=== PATIENT | female | born 1955 | race Caucasian/White ===

== ENCOUNTER 2025-01-24 17:55 | Inpatient (IN) | payer MEDICARE, SELFPAY ==
[2025-01-24] VITALS (8 sets, daily range): BP systolic 123–157; BP diastolic 60–84; PULSE 94–110; RESP 12–33; TEMP 36.9–37.7; O2SAT 89–100; BMI 28.7; BMI 30.2
--- NOTE | 2025-01-24 18:10 | RAD_ITS ---
PROCEDURE: RAD/Chest 1 View (Portable)
--- NOTE | 2025-01-24 18:16 | EX.ED.DYSGE1 ---
HPI History of Present Illness Chief Complaint: Weakness Detail of Chief Complaint: Acute altered mental status Informant: EMS Onset/Context/Timing Onset: Hours Context: Sudden Onset Timing: Continuous Quality: Patient decreased awareness and disorientation Location: Presents from [facility]. She does not live in the area. Current Severity: Moderate Maximum Severity: Moderate Worsened by: Unknown Relieved by: Nothing Associated Symptoms Associated Symptoms: Runny nose Narrative Narrative: EMS went out to check on her earlier today. She did not feel well. She felt it was due to wound on her leg. And specifically that the wound was infected. Squad states she drastically declined. She is disoriented to time and place. She has trouble keeping her eyes open to verbal stimuli. She will open her eyes to tactile. The only thing that she endorses is runny nose. She denied head pain, she denied black stools, she denied urinary symptoms as well. She denies shortness of breath even though she is breathing 26-30 times a minute. She is an unreliable informant. Patient had a transient moment where she knew her name, that she was in [place] and was here for [employer]. When she was reassessed by me 5 minutes later she is disoriented again. Prior similar symptoms: No (Unknown) Recent Illness/Hospitalization: No (She told the nurse she had open heart surgery August of this year.) [facility] Medical History (Updated 01/24/25 @ 21:[address] Jackson Garcia MD) Chronic anemia CKD (chronic kidney disease), stage III CAD (coronary artery disease) HLD (hyperlipidemia) Hypertension Diabetes Heart attack Medical History unable to obtain unable to obtain Home Medications ?Medication ?Instructions ?Recorded ?Last Taken ?Type albuterol sulfate 2.5 mg/3 mL 1 continuous nebulization Q6H PRN 01/24/25 Unknown History (0.083 %) solution for nebulization PRN dyspnea albuterol sulfate 90 mcg/actuation 1 - 2 puff inhalation Q4H PRN PRN 01/24/25 Unknown History aerosol inhaler dyspnea buspirone 5 mg tablet 5 mg PO BID 01/24/25 Unknown History clopidogrel 75 mg tablet 75 mg PO DAILY 01/24/25 Unknown History doxycycline monohydrate 100 mg 100 mg PO BID 01/24/25 Unknown History capsule insulin aspar prot-insulin aspart 45 unit subcut BID 01/24/25 Unknown History 100 unit/mL (70-30) subcutaneous pen (Novolog Mix 70-30FlexPen U-100) losartan 50 mg tablet 50 mg PO DAILY 01/24/25 Unknown History metoprolol succinate 25 mg 50 mg PO DAILY 01/24/25 Unknown History tablet,extended release 24 hr omeprazole 40 mg capsule,delayed 40 mg PO DAILY 01/24/25 Unknown History release potassium chloride 20 mEq 20 meq PO DAILY 01/24/25 Unknown History tablet,extended release(part/cryst) spironolactone 25 mg tablet 25 mg PO DAILY 01/24/25 Unknown History Allergy/AdvReac Type Severity Reaction Status Date / Time azithromycin AdvReac headache Verified 01/24/25 18:40 Surgical History (Updated 01/24/25 @ 21:[address] Linda Melendez MD) Hx of appendectomy S/P CABG (coronary artery bypass graft) Surgical History unable to obtain unable to obtain (Coronary bypass surgery and clipping of atrial appendage) Social History Smoking Status: Former smoker Homelessness:: Unspecified (Unable to obtain other than what is documented in the HPI neuro) ROS ROS ED Review of Systems ROS Unobtainable: due to mental status EXAM Physical Exam Const Vital Signs: 01/24/25 17:58 01/24/25 18:43 01/24/25 18:47 Temperature 98.5 F Temperature Source Oral Pulse Rate 110 H 99 Respiratory Rate 26 H 33 H Respiratory Pattern Tachypnea Blood Pressure 123/84 H 140/64 H Blood Pressure Mean 97 89 Pulse Ox 100 89 Oxygen Delivery Method Nasal Cannula Room Air Oxygen Flow Rate (L/min) 4 01/24/25 18:47 01/24/25 19:01 01/24/25 20:00 Temperature 98.7 F 98.4 F Temperature Source Oral Oral Pulse Rate 99 99 94 Respiratory Rate 32 H 27 H 13 Respiratory Pattern Blood Pressure 140/64 H 147/74 H 148/60 H Blood Pressure Mean 89 98 89 Pulse Ox 99 99 100 Oxygen Delivery Method Nasal Cannula Room Air Room Air Oxygen Flow Rate (L/min) 2 01/24/25 21:00 Temperature 98.4 F Temperature Source Oral Pulse Rate 99 Respiratory Rate 19 H Respiratory Pattern Blood Pressure 138/77 H Blood Pressure Mean 97 Pulse Ox 100 Oxygen Delivery Method Room Air Oxygen Flow Rate (L/min) Positive well nourished and well developed Constitutional Narrative: Patient appears pale. She looks ill. She is not oriented. General Appearance ED: well developed and pallor HEENT Reports moist mucous membranes HEENT Narrative: Head is atraumatic and normocephalic. Ears are normal. Nares patent. Posterior pharynx is normal. Eyes PERRL and EOMs intact bilaterally General Eye ED: Negative for pale conjunctiva or scleral icterus Neck no lymphadenopathy, supple and no JVD Chest Wall Chest Narrative: Medial sternal incision noted and healed. Resp normal respiratory effort Resp Narrative: Shallow rapid breaths. Auscultation: rales bilateral base Cardio regular rate, regular rhythm, S1 normal heart sound, S2 normal heart sound and no murmurs GI normal to inspection, nondistended, normoactive bowel sounds, non-tender, non-distended and no masses; Negative for hepatosplenomegaly Extremity Extremity Narrative: Patient has edema of both legs. She has a wound that is healing without evidence infection medial mid right leg there is no palpable PT or DP pulses. There is a palpable radial pulse bilaterally. She does have stigmata of peripheral arterial disease with thin skin, thickened toenails, lack of hair on her toes. Neuro No oriented x3 and CN's II-XII intact bilaterally Neuro Narrative: Patient attempted to answer questions but is unable. Her speech is not slurred. Sensorium / Orientation: Negative for alert Psych Psych Narrative: Unable to determine Skin General Skin Exam: pallor MDM MDM MDM Narrative Medical decision making narrative: Differential diagnosis would include infectious versus metabolic versus toxin. Since she is tachypneic and has rales at the base with history of heart disease will obtain chest x-ray to assess for CHF, pneumonia, initially obtain BMP CBC lactate was ordered. [place] was ordered to obtain urine as well as measure I's and O's after reviewing the chest x-ray troponin and BNP was ordered since there is evidence of cephalization and cardiomegaly. History & Record Review Additional record(s) reviewed:: No prior records Lab Data Attestation: I reviewed the patient's lab results. Lab results narrative: White count is elevated 22.5 thousand with an H&H of 10.4 and 33.5. There is a shift with 86% segs. Coags are normal. Urinalysis is remarkable sipper gravity of 1.025, protein, glucose, ketones and occult blood. Since patient has history of diabetes BGT was obtained and it is greater than 200. Microscopic urine reveals 0-5 RBCs and WBCs and squamous epithelial cells. There is 1+ bacteria. BNP is elevated at 10,887. Troponin is elevated at 23. Lactate is elevated 3.0. Labs: Laboratory Results - last 24 hr 01/24/25 01/24/25 01/24/25 18:20 18:25 18:25 WBC 22.5 H RBC 4.02 L Hgb 10.4 L Hct 33.5 L MCV 83.3 MCH 25.9 L MCHC 31.0 L RDW Std Deviation 45.1 H RDW Coeff of Maxwell 14.9 H Plt Count 205 MPV 10.4 Immature Gran % (Auto) 1.500 H Neut % (Auto) 85.5 H Lymph % (Auto) 6.7 L [place] % (Auto) 5.9 Eos % (Auto) 0.0 Baso % (Auto) 0.4 Absolute Neuts (auto) 19.2 H Absolute Lymphs (auto) 1.50 Nucleated RBC % 0 PT 14.7 INR 1.1 APTT 27.7 Sodium Cancelled 138 Potassium Cancelled 4.5 Chloride Cancelled 102 Carbon Dioxide Cancelled 23.4 Anion Gap Cancelled 12 BUN Cancelled 24 H Creatinine Cancelled 1.14 Estim Creat Clear Calc Cancelled 46.82 L Est GFR (MDRD) Non-Af Cancelled 51 L BUN/Creatinine Ratio Cancelled 21.0 H Glucose Cancelled 262 H Lactic Acid 3.0 H* Calcium Cancelled 9.2 Total Bilirubin Cancelled 0.65 AST Cancelled 21 ALT Cancelled 16 Alkaline Phosphatase Cancelled 63 Troponin T High Sens 23 H Troponin T Hi Sens 2 Hr NT pro BNP II Cancelled 15835 H Total Protein Cancelled 7.4 Albumin Cancelled 4.3 Globulin Cancelled 3.1 Albumin/Globulin Ratio Cancelled 1.4 Urine Color Yellow Urine Clarity Clear Urine pH 5.0 Ur Specific [place] 1.025 Urine Protein 100 H Urine Glucose (UA) 100 H Urine Ketones 5 H Urine Occult Blood 10 H Urine Nitrite Negative Urine Bilirubin Negative Urine Urobilinogen 1 H Ur Leukocyte Esterase Negative Urine RBC 0-5 SEEN Urine WBC 0-5 SEEN Ur Squamous Epith Cells 0-5 SEEN Urine Bacteria 1+ Hyaline Casts 0-5 SEEN Urine Mucus 0 SEEN POC Glucose 01/24/25 01/24/25 18:51 20:50 WBC RBC Hgb Hct MCV MCH MCHC RDW Std Deviation RDW Coeff of Maxwell Plt Count MPV Immature Gran % (Auto) Neut % (Auto) Lymph % (Auto) [place] % (Auto) Eos % (Auto) Baso % (Auto) Absolute Neuts (auto) Absolute Lymphs (auto) Nucleated RBC % PT INR APTT Sodium Potassium Chloride Carbon Dioxide Anion Gap BUN Creatinine Estim Creat Clear Calc Est GFR (MDRD) Non-Af BUN/Creatinine Ratio Glucose Lactic Acid Calcium Total Bilirubin AST ALT Alkaline Phosphatase Troponin T High Sens Troponin T Hi Sens 2 Hr 34 H NT pro BNP II Total Protein Albumin Globulin Albumin/Globulin Ratio Urine Color Urine Clarity Urine pH Ur Specific [place] Urine Protein Urine Glucose (UA) Urine Ketones Urine Occult Blood Urine Nitrite Urine Bilirubin Urine Urobilinogen Ur Leukocyte Esterase Urine RBC Urine WBC Ur Squamous Epith Cells Urine Bacteria Hyaline Casts Urine Mucus POC Glucose 219 H ABG Data ABG results: ABG 01/24/25 19:12 Specimen Type ART Sample Site R Radial pH 7.41 Bicarbonate Actual 24.3 Total CO2 26 Base Excess 0 O2 Saturation 95 O2 % 2.0 ABG pCO2 38.4 ABG pO2 75 Bony Test Negative O2 Delivery Device Cannula Vent Mode Not entered Radiography Chest X-Ray - ED: 1 View (Independently interpreted by me at 1816 reveals cardiomegaly. She has evidence of cephalization consistent with heart failure. There is no effusion. Sternotomy wires noted. Clip for atrial appendage noted.) EKG Initial EKG: Attestation: I personally reviewed and interpreted this EKG as follows: Interpretation: Sinus Rhythm (Rate is 99. [place] to the left. CA interval is under 6 4 ms. QS duration 108 ms. QT duration [place] 56 ms. There is significant artifact. Suspect this is due to her tachypnea.) Management Discussion w/another healthcare provider: Hospitalist (Spoke to Dr. Melendez. Admit PCU. Patient will receive 20 mg of Lasix prior to going to the floor.) Treatment and Re-Evaluation :: With elevated white count and bacteriuria and elevated lactate will start on Rocephin. This may be the etiology of her delirium. Comments:: Apparently patient is on doxycycline. This may be the reason why patient does not have pyuria on her urinalysis. Discharge Plan Dx/Rx/DC Orders Clinical Impression: Acute delirium, Leukocytosis, Acidosis, lactic, CHF (congestive heart failure), Elevated troponin, Anemia, Bacteremia Disposition Disposition: Acute Care Hospital [facility]
[2025-01-24 18:39] LABS: Mucous, Urine 0 SEEN /hpf (<or=2+)
[2025-01-24 18:50] LABS: Color, Urine Yellow (Yellow); Glucose, Dipstick 100 mg/dl (Normal); Hematocrit 33.5 % (37-47); Hemoglobin 10.4 g/dL (12.0-15.0); Immature Granulocytes Count 0.340 X10^3/uL (0.0-0.0); Ketone-Dipstick 5 mg/dl (Negative); Leukocyte Esterase-Dipstick Negative /ul (Negative); Mean Corp Hgb Conc 31.0 g/dL (32-36); Mean Corpuscular Volume 83.3 fL (81-99); Mean Platelet Vol. 10.4 fl (6.2-12.0); NRBC Flagged by Analyzer 0 % (0-5); Nitrite-Dipstick Negative (Negative); Occult Blood-Urine 10 /ul (Negative); Platelet Count 205 K/mm3 (150-450); Protein-Dipstick 100 mg/dl (Negative); RBC Distribution Width CV 14.9 % (11.6-14.6); RBC Distribution Width SD 45.1 fl (35.1-43.9); Red Blood Count 4.02 M/mm3 (4.2-5.4); Specific Gravity, Urine 1.025 (1.002-1.030); Urine Bilirubin Dipstick Negative (Negative); White Blood Count 22.5 K/mm3 (4.4-11.0)
[2025-01-24 18:59] LABS: Partial Thromboplast Time 27.7 Seconds (24.1-36.2); Prothrombin Time (Protime)PT. 14.7 SECONDS (11.7-14.9)
[2025-01-24 19:06] LABS: Red Blood Cells-Urine 0-5 SEEN /hpf (0-5)
[2025-01-24 19:07] LABS: Squamous Epithelial Cells - UA 0-5 SEEN /hpf (5-10)
[2025-01-24 19:19] LABS: Allen Test Negative; Base Excess 0 mmol/L (-2 to +2); FI02 2.0; PO2 75 mmHG (75-100); SITE R Radial; SO2 95 % (94-98)
[2025-01-24 19:21] LABS: AST(SGOT) 21 U/L (<=31); Alanine Aminotransfer ALT/SGPT 16 U/L (<=34); Albumin, Serum 4.3 g/dL (3.4-4.8); Alkaline Phosphatase 63 U/L (35-104); Anion Gap 12 (5-15); BUN 24 mg/dL (4-19); BUN/Creat Ratio 21.0 RATIO (10-20); Calcium,Total 9.2 mg/dL (7.6-11.0); Carbon Dioxide 23.4 mmol/L (21.0-32.0); Chloride 102 mmol/L (98-108); Estimated Creatinine Clearance 46.82 ml/min (50-250); Globulin 3.1 g/dL (2.2-4.2); Glucose 262 mg/dL (70-99); Potassium 4.5 mmol/L (3.3-5.1); Pro- Brain NATRIURETIC PEPTIDE 10887 pg/mL (<=900); Troponin T High Sensitivity 23 ng/L (<=14)
--- NOTE | 2025-01-24 21:12 | PCM.HP.STD ---
HPI - General General Date of Admission: 01/24/25 Date of Service: 01/24/25 Chief Complaint: Altered mentation, leg wound recently started outpatient on abx, rhinorrhea/congestion. HPI Narrative The patient is a 69 y/o F w/ PMHx: GERD, Anxiety, Former tobacco use, CAD s/p CABG 08/2024, HTN, HLD, Diabetes mellitus type II who presents to the [facility] ED on 01/24/2025 with history of altered mental status recently in the region secondary to a scrapbooking convention reportedly not feeling well earlier in the day with a right lower extremity wound from where her graft was harvested with concern for infected wound as she has been seen the day prior and was started on oral doxycycline for infection as it had reportedly increased drainage and mild odor with EMS call initially when she has been feeling poorly with recommendation strongly at that time to present for evaluation however they had she had strongly declined but continued to become more confused with recent rhinorrhea but no marked dyspnea complaint although was noted to be very tachypneic with report per ED of patient being intermittently confused. In the ED patient with evaluation of the healing medial right leg wound that purportedly at that time did not appear infected with no periwound erythema or marked discharge. Workup in the ED included T90.5, heart 110, BP 122/84, respiratory rate 26, 100% on 4 L nasal cannula with most recent repeat assessment T90.7, rate 99, BP 147/74, respiratory rate 27, 99% on 2 L nasal cannula, CBC with WC 22.5, Hgb 10.4, MCV 83.3, platelet 205 with notable left shift, unremarkable coags, ABG unremarkable, CMP with BUN/Cryan 24/1.14, GFR 51, glucose 262, lactic acid 3.0, hepatic profile not marked appearing, troponin 23, NT proBNPII 10,887, urinalysis not marked appearing, blood culture x 2 pending per ED, EKG with sinus rhythm with no acute evidence of ischemia, chest x-ray with cardiomegaly with some concern for cephalization with no effusion status post evidence of CABG with sternotomy wires and evidence of atrial appendage clip but final read pending per radiology at time of presentation. From medication list outpatient patient had been initiated with plan for 7-day course on doxycycline 100 mg twice daily on 01/23/2025. In the ED patient administered Rocephin 2 g IV x 1 and Lasix 20 mg IV x 1. [facility] Medical History Chronic anemia CKD (chronic kidney disease), stage III CAD (coronary artery disease) HLD (hyperlipidemia) Hypertension Diabetes Heart attack Medical History unable to obtain Home Medications ?Medication ?Instructions ?Recorded ?Last Taken ?Type albuterol sulfate 2.5 mg/3 mL 1 continuous nebulization Q6H PRN 01/24/25 Unknown History (0.083 %) solution for nebulization PRN dyspnea albuterol sulfate 90 mcg/actuation 1 - 2 puff inhalation Q4H PRN PRN 01/24/25 Unknown History aerosol inhaler dyspnea buspirone 5 mg tablet 5 mg PO BID 01/24/25 Unknown History clopidogrel 75 mg tablet 75 mg PO DAILY 01/24/25 Unknown History doxycycline monohydrate 100 mg 100 mg PO BID 01/24/25 Unknown History capsule insulin aspar prot-insulin aspart 45 unit subcut BID 01/24/25 Unknown History 100 unit/mL (70-30) subcutaneous pen (Novolog Mix 70-30FlexPen U-100) losartan 50 mg tablet 50 mg PO DAILY 01/24/25 Unknown History metoprolol succinate 25 mg 50 mg PO DAILY 01/24/25 Unknown History tablet,extended release 24 hr omeprazole 40 mg capsule,delayed 40 mg PO DAILY 01/24/25 Unknown History release potassium chloride 20 mEq 20 meq PO DAILY 01/24/25 Unknown History tablet,extended release(part/cryst) spironolactone 25 mg tablet 25 mg PO DAILY 01/24/25 Unknown History Allergy/AdvReac Type Severity Reaction Status Date / Time azithromycin AdvReac headache Verified 01/24/25 18:40 Family History (Updated 01/24/25 @ 22:[address] Linda Melendez MD) Mother NH lymphoma Father Heart disease Hypertension Surgical History (Updated 01/24/25 @ 22:[address] Linda Melendez MD) History of tonsillectomy and adenoidectomy Hx of appendectomy S/P CABG (coronary artery bypass graft) Surgical History unable to obtain Social History (Updated 01/24/25 @ 22:[address] Linda Melendez MD) household members: spouse Smoking Status: Former smoker how long ago did patient quit smoking: Quit 1970s, smoked for short duration. alcohol intake: current alcohol intake frequency: holidays/special occasions only Alcohol type: wine substance use type: does not use Homelessness:: Unspecified (Unable to obtain other than what is documented in the HPI neuro) ROS ROS Narrative Admission Review of Systems: CONSTITUTIONAL: No weight loss, fever, chills, + weakness or fatigue. HEENT: + Mild congestion, rhinorrhea. Eyes: No visual loss, blurred vision, double vision or yellow sclerae. Ears, Nose, Throat: No hearing loss, sneezing, sore throat. SKIN: No rash or itching, lesions except + persistent right lower extremity leg wound from harvest site, recent increased drainage and foul odor. CARDIOVASCULAR: No chest pain, chest pressure or chest discomfort, palpitations, edema, orthopnea, syncopal events. RESPIRATORY: No shortness of breath, cough or sputum, wheezing, hemoptysis. GASTROINTESTINAL: No anorexia, nausea, vomiting or diarrhea, abdominal pain, melena, BRBPR. GENITOURINARY: No dysuria, frequency, urgency or retention. NEUROLOGICAL: + Confusion. No headache, dizziness, syncope, paralysis, ataxia, numbness or tingling in the extremities, focal weakness, change in bowel or bladder control, seizure. MUSCULOSKELETAL: + muscle, back pain, joint pain or stiffness. HEMATOLOGIC: + Chronic anemia, easy bleeding/bruising. LYMPHATICS: No enlarged nodes. No history of splenectomy. PSYCHIATRIC: + History of anxiety. ENDOCRINOLOGIC: No reports of sweating, cold or heat intolerance. No polyuria or polydipsia. ALLERGIES: No history of asthma, hives, eczema or rhinitis. Vital Signs Vital Signs Vital Signs: 01/24/25 17:58 01/24/25 18:43 01/24/25 18:47 Temperature 98.5 F Temperature Source Oral Pulse Rate 110 H 99 Respiratory Rate 26 H 33 H Respiratory Pattern Tachypnea Blood Pressure 123/84 H 140/64 H Blood Pressure Mean 97 89 Pulse Ox 100 89 Oxygen Delivery Method Nasal Cannula Room Air Oxygen Flow Rate (L/min) 4 01/24/25 18:47 01/24/25 19:01 Temperature 98.7 F Temperature Source Oral Pulse Rate 99 99 Respiratory Rate 32 H 27 H Respiratory Pattern Blood Pressure 140/64 H 147/74 H Blood Pressure Mean 89 98 Pulse Ox 99 99 Oxygen Delivery Method Nasal Cannula Room Air Oxygen Flow Rate (L/min) 2 Weight Weight: 172 lb 9.951 oz Body Mass Index (BMI) 28.7 Physical Exam Narrative Physical Examination: General: Patient improved upon hospitalist evaluation, alert, oriented to self, place and recent events, able to give more accurate information. Skin: Normal color, normal turgor, no icterus, no cyanosis except for occasional stage ecchymoses, abrasion, right medial leg at harvest site with a small open region with some purulent yellow drainage but no significant foul odor or periwound erythema. HEENT: AT/NC, EOMI, PERRLA, MMM, no carotid bruits, no markedly significantly elevated JVD noted. Lungs: Diminished, greater bases, mild tachypnea but no severe evidence of respiratory distress, mild crackles/rales distantly at the bases, no rhonchi or wheezing. Heart: Mildly tachycardic with regular rhythm; no gallop, rub audible. Abdomen: Soft, overweight, NTTP, ND, normal BS, no appreciated HSM. Extremities: No cyanosis, no clubbing, no significant distal edema, see skin. Neurological: Patient awake, alert, oriented as noted, notably improved since initial ED arrival, cognitive function improving from initial ED arrival, suspect nearing baseline intact at her hospitalist evaluation although per ED physician did wax and wane in the ED; pupils equally reactive to light and accommodation, cranial nerves grossly normal, moving all 4 extremities, no focal deficits, strength severely globally decreased. Psychiatric: Affect appears flat, fatigued, no acute evidence of depressive or anxiety feelings but does have history of anxiety. Results Lab / Micro Data 01/24/25 18:20 01/24/25 18:25 Labs: Laboratory Results - last 24 hr 01/24/25 18:20: WBC 22.5 H, RBC 4.02 L, Hgb 10.4 L, Hct 33.5 L, MCV 83.3, MCH 25.9 L, MCHC 31.0 L, RDW Std Deviation 45.1 H, RDW Coeff of Maxwell 14.9 H, Plt Count 205, MPV 10.4, Immature Gran % (Auto) 1.500 H, Neut % (Auto) 85.5 H, Lymph % (Auto) 6.7 L, [place] % (Auto) 5.9, Eos % (Auto) 0.0, Baso % (Auto) 0.4, Absolute Neuts (auto) 19.2 H, Absolute Lymphs (auto) 1.50, Nucleated RBC % 0, PT 14.7, INR 1.1, APTT 27.7, Sodium Cancelled, Potassium Cancelled, Chloride Cancelled, Carbon Dioxide Cancelled, Anion Gap Cancelled, BUN Cancelled, Creatinine Cancelled, Estim Creat Clear Calc Cancelled, Est GFR (MDRD) Non-Af Cancelled, BUN/Creatinine Ratio Cancelled, Glucose Cancelled, Calcium Cancelled, Total Bilirubin Cancelled, AST Cancelled, ALT Cancelled, Alkaline Phosphatase Cancelled, Total Protein Cancelled, Albumin Cancelled, Globulin Cancelled, Albumin/Globulin Ratio Cancelled, Urine Color Yellow, Urine Clarity Clear, Urine pH 5.0, Ur Specific Grant 1.025, Urine Protein 100 H, Urine Glucose (UA) 100 H, Urine Ketones 5 H, Urine Occult Blood 10 H, Urine Nitrite Negative, Urine Bilirubin Negative, Urine Urobilinogen 1 H, Ur Leukocyte Esterase Negative, Urine RBC 0-5 SEEN, Urine WBC 0-5 SEEN, Ur Squamous Epith Cells 0-5 SEEN, Urine Bacteria 1+, Hyaline Casts 0-5 SEEN, Urine Mucus 0 SEEN 01/24/25 18:25: Sodium 138, Potassium 4.5, Chloride 102, Carbon Dioxide 23.4, Anion Gap 12, BUN 24 H, Creatinine 1.14, Estim Creat Clear Calc 46.82 L, Est GFR (MDRD) Non-Af 51 L, BUN/Creatinine Ratio 21.0 H, Glucose 262 H, Lactic Acid 3.0 H*, Calcium 9.2, Total Bilirubin 0.65, AST 21, ALT 16, Alkaline Phosphatase 63, Troponin T High Sens 23 H, NT pro BNP II Cancelled 01/24/25 18:25: [place] [address] H, Total Protein 7.4, Albumin 4.3, Globulin 3.1, Albumin/Globulin Ratio 1.4 01/24/25 18:51: POC Glucose 219 H ABG Data ABG results: ABG 01/24/25 19:12 Specimen Type ART Sample Site R Radial pH 7.41 Bicarbonate Actual 24.3 Total CO2 26 Base Excess 0 O2 Saturation 95 O2 % 2.0 ABG pCO2 38.4 ABG pO2 75 Bony Test Negative O2 Delivery Device Cannula Vent Mode Not entered Assessment & Plan Assessment/Plan (1) Acute delirium: PLAN: Plan The patient is a 69 y/o F w/ PMHx: GERD, Anxiety, Former tobacco use, CAD s/p CABG 08/2024, HTN, HLD, Diabetes mellitus type II who presents to the [facility] ED on 01/24/2025 with history of altered mental status recently in the region secondary to a scrapbooking convention reportedly not feeling well earlier in the day found to have a wound on her leg with concern for possibly infected wound with EMS call initially when she has been feeling poorly with recommendation strongly at that time to present for evaluation however they had she had strongly declined but continued to become more confused with recent rhinorrhea but no marked dyspnea complaint although was noted to be very tachypneic with report per ED of patient being intermittently confused. #1. Acute encephalopathy, possibly multifactorial with notable leukocytosis with left shift as well as lactic acidosis with concern for possible underlying infectious etiology, Primary suspicion for infected medial right leg wound with potentially failed outpatient antibiotic therapy; however, certainly could be acute viral syndrome or possibly developing pneumonia unclear organism given recent mild URI type symptoms however some concern as noted #2: Will admit to PCU, maintain on IV Zosyn and vancomycin in case this is not just an infected wound, possibly a respiratory source given her URI mild complaint of rhinorrhea upon arrival, if onset of discharge will obtain Wound Cx as well as wound MRSA PCR, plan repeat CBC in AM, continue affected extremity elevation above heart when seated and in bed. Procalcitonin requested. UCx also pending per ED. Additionally, will continue evaluation and treatment #2, thus deferring any aggressive hydration considerations although again still not certain heart failure, certainly could be an evolving pulmonary infectious etiology. #2. Questionable concurrent Acute Decompensated HF unclear type and/or possible Acute Viral Syndrome/Possible developing PNA unclear organism: Given infectious concerns loathe to aggressively diurese as patient also reports recent unchanged weight, no marked increased edema, no dysnea and also no orthopnea; however, CXR obtained in the ED w/ concern for cephalization however final read pending and also BNP also noted to be elevated but concern for aggressive diuresis given #1. Will very judiciously pulse dose IV Lasix given these concerns. Will maintain on cardiac telemetry, obtain cardiac enzyme series, obtain serial EKGs, monitor I/Os, continue medical therapy, obtain TSH and magnesium level. Will request echocardiogram. Pending patient response to these interventions may certainly consider cardiology involvement if concerns arise. Full respiratory viral panel, urine antigens requested given mild URI complaints in case underlying process concurrently contributing to #1, #2. #3. Diabetes mellitus type II: Hold oral home regimen, until patient is more alert and appropriate will maintain n.p.o. status but once appropriate transition to ADA diet, maintain on accu checks w/ ISS. #4. CAD: Status post recent CABG 08/2024, will continue Plavix, ezetimibe, losartan, metoprolol noted on outpatient medication listing but will clarify to be certain. #5. Hypertension: Continue home regimen including losartan, metoprolol, IV Lasix as noted above pulse dose, PRN hydralazine. #6. Hyperlipidemia: Per list outpatient not on statin therapy, will continue ezetimibe. #7. Normocytic anemia, possibly chronic but uncertain: Admission hemoglobin 10.4, MCV 83.3, no comparison labs available, will continue to trend to further elucidate. #8. Chronic Kidney Disease Stage III per GFR trending but uncertain as no comparison labs from prior: Admission BUN/Cr 24/1.14, GFR 51, baseline renal function unknown, repeat BMP in AM to further elucidate. #9. Anxiety: Will temporally hold patient home BuSpar regimen given lethargy. #10. GERD: Will continue patient on PPI. #11. DVT prophylaxis: Lovenox. #12. CODE status: Patient MARY is her daughter and living will is currently in place. Discussed CODE status at length including difference between FULL code, DNR-CCA and DNR-CC status. Following discussions about the differences in these status, requested Full Code status. Advanced Care Planning Face to Face Time: 16 minutes. Charges/Coding Visit Charges Inpatient E&M: 18071 Init Hosp L3 Procedures Hospitalists Procedures: 04454 Advncd Care Plan 30 Min
[2025-01-24] MEDS: Ceftriaxone 2 GM in 0.9% Normal Saline (50mL MB+) 50 ML IV (21:17)
[2025-01-24 21:35] LABS: Troponin T High Sens 2 HR 34 ng/L (<=14)
[2025-01-24 21:58] LABS: Magnesium 1.7 mg/dL (1.5-2.2)
[2025-01-24 22:36] LABS: Reflex Lactate? Y
[2025-01-24 23:19] LABS: Troponin T High Sens 4 HR 27 ng/L (<=14)
--- NOTE | 2025-01-24 23:48 | ECHOCS_ITS ---
Reason For Study ECHO/Echo Complete W/ Contrast
[2025-01-25] VITALS (11 sets, daily range): BP systolic 114–138; BP diastolic 59–103; PULSE 83–113; RESP 15–32; TEMP 36.6–37.5; O2SAT 90–100
[2025-01-25] MEDS: Vancomycin HCl 2,000 MG in 0.9% Normal Saline (500mL Bag) 500 ML 250 MG IV (00:23)
[2025-01-25] MEDS: Piperacil/Tazobactam 3.375 GM in 0.9% Normal Saline (50mL MB+) 50 ML IV ×4 (00:23→21:27)
[2025-01-25 00:25] LABS: Procalcitonin 0.34 ng/mL (<=0.10)
--- NOTE | 2025-01-25 01:23 | PCM.RX.CS ---
Consult Antibiotic Management Pharmacy has been consulted to manage selected antibiotic: Vancomycin Type of Intervention Type of Consult: New start Labs Labs: Sodium 138 mmol/L (133-145) 01/24/25 18:25 Potassium 4.5 mmol/L (3.3-5.1) 01/24/25 18:25 Chloride 102 mmol/L (98-108) 01/24/25 18:25 Carbon Dioxide 23.4 mmol/L (21.0-32.0) 01/24/25 18:25 Anion Gap 12 (5-15) 01/24/25 18:25 BUN 24 mg/dL (4-19) H 01/24/25 18:25 Creatinine 1.14 mg/dL (0.70-1.20) 01/24/25 18:25 Est GFR (MDRD) Non-Af 51 (>60) L 01/24/25 18:25 BUN/Creatinine Ratio 21.0 RATIO (10-20) H 01/24/25 18:25 Glucose 262 mg/dL (70-99) H 01/24/25 18:25 Dosing Weight Weight used for dosin kg Estimated Creatinine Clearance Estimated Creatinine Clearance: 46.82 Goal Trough Goal Trough: 15-20 mcg/mL Pharmacy Plan for Drug Dosing Pharmacy Plan for Drug Dosing: Pharmacy Service will continue to monitor and adjust dosing as required. LOADING DOSE 2000MG GIVEN 01/25 @ 0015. START 500MG Q12H AND DRAW TROUGH PRIOR TO 4TH DOSE Follow-Up Labs Follow-Up Labs: Trough: Vancomycin Date/Time Labs Ordered Labs to be done on [date and time ordered]: 01/26 @ 1200
[2025-01-25 04:35] LABS: Hematocrit 29.5 % (37-47); Hemoglobin 9.3 g/dL (12.0-15.0); Immature Granulocytes Count 0.180 X10^3/uL (0.0-0.0); Mean Corp Hgb Conc 31.5 g/dL (32-36); Mean Corpuscular Volume 82.6 fL (81-99); Mean Platelet Vol. 10.9 fl (6.2-12.0); NRBC Flagged by Analyzer 0 % (0-5); Platelet Count 170 K/mm3 (150-450); RBC Distribution Width CV 15.1 % (11.6-14.6); RBC Distribution Width SD 45.6 fl (35.1-43.9); Red Blood Count 3.57 M/mm3 (4.2-5.4); White Blood Count 16.8 K/mm3 (4.4-11.0)
[2025-01-25 05:01] LABS: AST(SGOT) 15 U/L (<=31); Alanine Aminotransfer ALT/SGPT 14 U/L (<=34); Albumin, Serum 3.7 g/dL (3.4-4.8); Alkaline Phosphatase 55 U/L (35-104); Anion Gap 12 (5-15); BUN 22 mg/dL (4-19); BUN/Creat Ratio 21.1 RATIO (10-20); Calcium,Total 8.7 mg/dL (7.6-11.0); Carbon Dioxide 22.5 mmol/L (21.0-32.0); Chloride 104 mmol/L (98-108); Cholesterol 109 mg/dL (<=200); Estimated Creatinine Clearance 46.15 ml/min (50-250); Globulin 2.8 g/dL (2.2-4.2); Glucose 258 mg/dL (70-99); Low Density Lipoprotein Calc. 53 mg/dL; Potassium 4.2 mmol/L (3.3-5.1); Triglycerides 89 mg/dL; Very Low Density Lipoprotein 18 mg/dL (5-40); cholesterol:hdl ratio screen 2.82
--- NOTE | 2025-01-25 09:06 | PN.HOSP_ITS ---
Reason for Visit
--- NOTE | 2025-01-25 09:06 | PCM.PN.HOSP ---
Reason for Visit Chief Complaint: Altered mentation, leg wound recently started outpatient on abx, rhinorrhea/congestion. Subjective Subjective Patient is feeling better today, more awake and alert, reports area around her right lower extremity lesion is numb so she was not sure how long it was bothering her for but when the scab came off she noted purulent drainage Objective Data Objective Data Vital Signs: Vital Signs Temp Pulse Resp BP Pulse Ox O2 Del Method O2 Flow Rate 99.5 F H 96 24 H 134/61 H 99 Nasal Cannula 2 01/25/25 05:53 01/25/25 05:53 01/25/25 05:53 01/25/25 05:53 01/25/25 08:48 01/25/25 08:48 01/25/25 08:48 Oxygen Flow Rate (L/min) 2 Oxygen Delivery Method Nasal Cannula Weight: 75 kg Body Mass Index (BMI) 30.2 Intake & Output: Intake and Output for Last 24 Hours 01/23/25 01/24/25 01/25/25 23:59 23:59 22:59 Intake Total 50 / 50 590 / 590 Output Total 550 / 550 Balance 50 / 50 40 / 40 Lab / Micro Data 01/25/25 03:36 01/25/25 03:36 Labs: Laboratory Results - last 24 hr 01/24/25 18:20: WBC 22.5 H, RBC 4.02 L, Hgb 10.4 L, Hct 33.5 L, MCV 83.3, MCH 25.9 L, MCHC 31.0 L, RDW Std Deviation 45.1 H, RDW Coeff of Maxwell 14.9 H, Plt Count 205, MPV 10.4, Immature Gran % (Auto) 1.500 H, Neut % (Auto) 85.5 H, Lymph % (Auto) 6.7 L, Gregg % (Auto) 5.9, Eos % (Auto) 0.0, Baso % (Auto) 0.4, Absolute Neuts (auto) 19.2 H, Absolute Lymphs (auto) 1.50, Nucleated RBC % 0, PT 14.7, INR 1.1, APTT 27.7, Sodium Cancelled, Potassium Cancelled, Chloride Cancelled, Carbon Dioxide Cancelled, Anion Gap Cancelled, BUN Cancelled, Creatinine Cancelled, Estim Creat Clear Calc Cancelled, Est GFR (MDRD) Non-Af Cancelled, BUN/Creatinine Ratio Cancelled, Glucose Cancelled, Calcium Cancelled, Total Bilirubin Cancelled, AST Cancelled, ALT Cancelled, Alkaline Phosphatase Cancelled, Total Protein Cancelled, Albumin Cancelled, Globulin Cancelled, Albumin/Globulin Ratio Cancelled, Urine Color Yellow, Urine Clarity Clear, Urine pH 5.0, Ur Specific Donald 1.025, Urine Protein 100 H, Urine Glucose (UA) 100 H, Urine Ketones 5 H, Urine Occult Blood 10 H, Urine Nitrite Negative, Urine Bilirubin Negative, Urine Urobilinogen 1 H, Ur Leukocyte Esterase Negative, Urine RBC 0-5 SEEN, Urine WBC 0-5 SEEN, Ur Squamous Epith Cells 0-5 SEEN, Urine Bacteria 1+, Hyaline Casts 0-5 SEEN, Urine Mucus 0 SEEN 01/24/25 18:25: Sodium 138, Potassium 4.5, Chloride 102, Carbon Dioxide 23.4, Anion Gap 12, BUN 24 H, Creatinine 1.14, Estim Creat Clear Calc 46.82 L, Est GFR (MDRD) Non-Af 51 L, BUN/Creatinine Ratio 21.0 H, Glucose 262 H, Lactic Acid 3.0 H*, Calcium 9.2, Total Bilirubin 0.65, AST 21, ALT 16, Alkaline Phosphatase 63, Troponin T High Sens 23 H, NT pro BNP II Cancelled 01/24/25 18:25: [place] [address] H, Total Protein 7.4, Albumin 4.3, Globulin 3.1, Albumin/Globulin Ratio 1.4 01/24/25 18:51: POC Glucose 219 H 01/24/25 20:50: Magnesium 1.7, Troponin T Hi Sens 2 Hr 34 H 01/24/25 22:40: Lactic Acid 2.7 H*, Troponin T Hi Sens 4Hr 27 H, Procalcitonin 0.34 H 01/25/25 00:51: POC Glucose 247 H 01/25/25 03:36: WBC 16.8 H, RBC 3.57 L, Hgb 9.3 L, Hct 29.5 L, MCV 82.6, MCH 26.1 L, MCHC 31.5 L, RDW Std Deviation 45.6 H, RDW Coeff of Maxwlel 15.1 H, Plt Count 170, MPV 10.9, Immature Gran % (Auto) 1.100 H, Neut % (Auto) 88.2 H, Lymph % (Auto) 5.8 L, Gregg % (Auto) 4.7, Eos % (Auto) 0.0, Baso % (Auto) 0.2, Absolute Neuts (auto) 14.8 H, Absolute Lymphs (auto) 0.98, Nucleated RBC % 0, Sodium 139, Potassium 4.2, Chloride 104, Carbon Dioxide 22.5, Anion Gap 12, BUN 22 H, Creatinine 1.06, Estim Creat Clear Calc 46.15 L, Est GFR (MDRD) Non-Af 56 L, BUN/Creatinine Ratio 21.1 H, Glucose 258 H, Calcium 8.7, Total Bilirubin 0.65, AST 15, ALT 14, Alkaline Phosphatase 55, Total Protein 6.5, Albumin 3.7, Globulin 2.8, Albumin/Globulin Ratio 1.3, Triglycerides 89, Cholesterol 109, LDL Cholesterol, Calc 53, VLDL Cholesterol 18, HDL Cholesterol 39 L, Cholesterol/HDL Ratio 2.82, TSH 0.309 01/25/25 06:07: POC Glucose 255 H ABG Data ABG results: ABG 01/24/25 19:12 Specimen Type ART Sample Site R Radial pH 7.41 Bicarbonate Actual 24.3 Total CO2 26 Base Excess 0 O2 Saturation 95 O2 % 2.0 ABG pCO2 38.4 ABG pO2 75 Bony Test Negative O2 Delivery Device Cannula Vent Mode Not entered Radiography Diagnostic Testing: Radiology Impression Chest X-Ray 01/24/25 18:10 IMPRESSION: 1. Cardiomegaly with mild vascular congestion. 2. Bibasilar opacities, possibly atelectasis and/or infiltrates. 3. Bilateral pleural effusions, greater on the left. Reading Location: [facility] [place] Social Homelessness:: Unspecified (Unable to obtain other than what is documented in the [facility] neuro) Physical Exam Narrative General: Alert, oriented, no apparent distress HEENT: Atraumatic, normocephalic Eyes: Anicteric, normal conjunctiva, extraocular movements grossly intact Neck: Supple Respiratory: Somewhat diminished at the bases, normal respiratory effort Cardiovascular: Regular rate GI: Soft, nontender, nondistended Extremities: No significant pitting edema Musculoskeletal: Moving all extremities Neuro: No overt focal neurological deficits Skin: Has dime size lesion over upper right tibia, has some dried drainage around it but is not actively draining and no erythema or warmth at this time Psych: Cooperative Assessment & Plan Assessment/Plan (1) Acute delirium: PLAN: Plan 69 y/o F with a history of anxiety, CAD with CABG August 2024, CKD, hypertension, diabetes, GERD presented to [facility] ED 01/25/2025 with confusion. She is not from the area and presented for scrapbooking convention. Reportedly EMS went out to check on her earlier today she did not feel well and thought it may be due to the wound on her leg that was infected but she subsequently drastically declined and was disoriented to time and place and lethargic. In the ED temp 98.5, heart rate 110, respiratory rate 26 and pulse ox 100% on 4 L nasal cannula, when taken off of oxygen respiratory rate went up to 33 and pulse ox 89% on room air. White count 22.5, hemoglobin 10.4, BUN 24 with a creatinine of 1.14, glucose 262 and lactic acid 3.0, troponin 23 and proBNP 10,887. ABG no acute abnormalities. Chest x-ray showed cardiomegaly with mild vascular congestion, bibasilar opacities possibly atelectasis and/or infiltrates, and bilateral pleural effusions greater on the left. Hospitalist contacted for admission for heart failure exacerbation. # Acute metabolic encephalopathy -Suspected be due to infection from right medial leg wound -Patient on broad-spectrum antibiotics with cultures pending -Elevate extremity # Right lower extremity wound - Where her graft was harvested, there was concern for infection and she was started on doxycycline on an outpatient basis - Changed IV antibiotics #Acute exacerbation of heart failure, unclear chronicity -Admit to telemetry -proBNP 10,000 -CXR with cardiomegaly and mild vascular congestion with bibasilar opacities and bilateral pleural effusions left greater than right -Continue IV lasix cautiously as there is concomitant concern for infection - Echo ordered -Daily weights, I's and O's #Type 2 diabetes mellitus -Glucose checks and sliding scale insulin #Hx of CAD -w/ previous CABG 08/2024 -Continue home medications #Hypertension - Continue home medications as blood pressure allows #GERD -Continue PPI #Depression/anxiety -Continue home medications #DVT ppx: Lovenox subcu Evelin Fernandez MD Charges/Coding Visit Charges Inpatient E&M: 79582 Subs Hosp L2
[2025-01-25] MEDS: Furosemide 20 MG/2 ML VIAL IV ×2 (09:22→17:33)
[2025-01-25] MEDS: 0.9% Saline Lock 10 ML Syringe IV ×4 (09:22→17:33)
[2025-01-25] MEDS: Vancomycin HCl 500 MG in 0.9% Normal Saline (100mL Bag) 100 ML 100 MG IV (12:40)
[2025-01-25] MEDS: Metoprolol(XL)Succ 50 MG Tablet PO (12:41)
[2025-01-25] MEDS: Albuterol 2.5 MG/3 ML VIAL.NEB. INHALATION (13:18)
[2025-01-25] MEDS: Insulin Human 75/25 Kwickpen 20 UNIT SC ×2 (16:47→17:33)
--- NOTE | 2025-01-25 16:56 | RAD_ITS ---
PROCEDURE: RAD/Tibia & Fibula 2 Views
[2025-01-26] VITALS (7 sets, daily range): BP systolic 122–146; BP diastolic 59–72; PULSE 80–94; RESP 15–16; TEMP 36.3–36.8; O2SAT 93–97; BMI 30.4
[2025-01-26] MEDS: Vancomycin HCl 500 MG in 0.9% Normal Saline (100mL Bag) 100 ML 100 MG IV (00:43)
[2025-01-26] MEDS: 0.9% Saline Lock 10 ML Syringe IV ×2 (00:43→20:53)
[2025-01-26 04:54] LABS: Hematocrit 29.1 % (37-47); Hemoglobin 8.9 g/dL (12.0-15.0); Immature Granulocytes Count 0.060 X10^3/uL (0.0-0.0); Mean Corp Hgb Conc 30.6 g/dL (32-36); Mean Corpuscular Volume 83.1 fL (81-99); Mean Platelet Vol. 10.6 fl (6.2-12.0); NRBC Flagged by Analyzer 0 % (0-5); Platelet Count 153 K/mm3 (150-450); RBC Distribution Width CV 15.3 % (11.6-14.6); RBC Distribution Width SD 46.8 fl (35.1-43.9); Red Blood Count 3.50 M/mm3 (4.2-5.4); White Blood Count 11.5 K/mm3 (4.4-11.0)
[2025-01-26 05:20] LABS: Anion Gap 10 (5-15); BUN 29 mg/dL (4-19); BUN/Creat Ratio 24.2 RATIO (10-20); Calcium,Total 8.7 mg/dL (7.6-11.0); Carbon Dioxide 24.6 mmol/L (21.0-32.0); Chloride 105 mmol/L (98-108); Estimated Creatinine Clearance 40.43 ml/min (50-250); Glucose 126 mg/dL (70-99); Potassium 3.7 mmol/L (3.3-5.1)
[2025-01-26] MEDS: Piperacil/Tazobactam 3.375 GM in 0.9% Normal Saline (50mL MB+) 50 ML IV ×3 (06:07→20:52)
[2025-01-26] MEDS: Insulin Human 75/25 Kwickpen 40 UNIT SC ×2 (08:51→17:37)
[2025-01-26] MEDS: Metoprolol(XL)Succ 50 MG Tablet PO (09:00)
[2025-01-26] MEDS: Furosemide 20 MG/2 ML VIAL IV ×2 (09:00→17:40)
--- NOTE | 2025-01-26 09:25 | PCA ---
REQUESTED MEDICAL RECORDS FROM [facility].
--- NOTE | 2025-01-26 12:38 | CASEMGMT ---
KARAN PEREZ Assessment Face to Face with patient for initial transition planning/care coordination assessment. KARAN PEREZ introduced self and role at [facility], pt voices understanding. Pt is A&Ox4 and is resting comfortably in bed and is calm. Care providers, pharmacy, and demographics verified. Pt reports that she is in the area due to a [employer]rap[employer] retreat. Admitting dx: Acute delirium LACE Strata: 1 PCP:Jaz Washburn Specialists: Beatris (Cardio), Ena (Cardio and thoracic surgeon [facility]), Yuniel (Podiatry in [place]) Preferred Pharmacy: [facility] in [place] Insurance: [employer] Prescription Benefit: Yes LNOK: Rosas ( - Recovering from Lung Cancer), Nancy (Daughter) Living Arrangements: Pt lives with her in a 2 story home with a basement and 3 steps to enter the home. Pt states that the laundry is in the basement and that there are 14 steps to manage. Pt states that her is active with a BAND SAW [employer]ER through the [place] and that the BAND SAW MARKER has been doing the laundry. Pt also states that her daughter is able to support them at times ADLs/IADLs/Wound/HH/ SNF/ OP Tx: Pt states that she is indep at baseline but is currently requiring some assistance. Pt states that, Someone is looking into pvt duty aid for me. Pt was offered a list of other pvt duty aid. Pt states that she would be receptive to this. List of resources provided. Pt also states that she was recently active with skilled HHC through [facility]. Pt denies SNF Hx or needs. Pt states that she is active with cardiac rehab at in [place] and that she plans to continue this as an OP once able. Pt states that she would like skilled HHC again through [facility]. Pt states that she would be receptive in reviewing a list of other local in-network HHC Agencies if [facility] is unable to accept. Pt reports that she would appreciate SN for wound care and PT/OT for general strengthening. DPA notified. See chart regarding pt's wound. Pt states that she has been caring for this herself at home since she is no longer active with skilled HHC. Transportation: Self, daughter, son-in-law DME: Pt may qualify for home oxygen use. A verbal list of local in-network DME companies were provided to the pt at this time. Pt prefers [employer]. Confirmed with [facility] [employer] liaison that they are in network with the pt's insurance. Pt reports that she has a BGM with sufficient supplies including pen needles for insulin shots. Cane x 2. BP Machine. Nebulizer. FWW. RTS. Walk in shower with bench and grab bars. Pt?s goal: Home Plan: Home with skilled HHC, pvt duty aid, potential oxygen, and [facility]iac rehab. Pt states that she feels safe with this plan and denies any further questions or concerns at this time. Report given to TABLE INSPECTOR CM. Sameer Mcdonough RN, CM
[2025-01-26 13:12] LABS: Vancomycin, Trough Level 12.0 ug/mL (5.0-15.0)
--- NOTE | 2025-01-26 13:23 | PCM.RX.CS ---
Consult Antibiotic Management Pharmacy has been consulted to manage selected antibiotic: Vancomycin Type of Intervention Type of Consult: Follow-up Suspected Infection Suspected Infection: Skin/Soft tissue Prior Doses of Antibiotics Prior Doses of Antibiotics Received/Current Regimen: Vancomycin 500 mg IV given 01/28/25 @ 0100 Labs Labs: Sodium 139 mmol/L (133-145) 01/26/25 04:04 Potassium 3.7 mmol/L (3.3-5.1) 01/26/25 04:04 Chloride 105 mmol/L (98-108) 01/26/25 04:04 Carbon Dioxide 24.6 mmol/L (21.0-32.0) 01/26/25 04:04 Anion Gap 10 (5-15) 01/26/25 04:04 BUN 29 mg/dL (4-19) H 01/26/25 04:04 Creatinine 1.21 mg/dL (0.70-1.20) H 01/26/25 04:04 Est GFR (MDRD) Non-Af 48 (>60) L 01/26/25 04:04 BUN/Creatinine Ratio 24.2 RATIO (10-20) H 01/26/25 04:04 Glucose 126 mg/dL (70-99) H 01/26/25 04:04 Vancomycin Trough 12.0 ug/mL (5.0-15.0) 01/26/25 11:58 Microbiology Microbiology: Microbiology 01/25/25 01:05 EST Wound - Leg, Right Gram Stain - Final 01/24/25 18:20 Urine, Random Urine Culture - Preliminary Culture exhibits no growth. 01/25/25 07:35 Mucosa - Nasopharyngeal Respiratory Panel (PCR) - Final Dosing Weight Weight used for dosin.4 kg Estimated Creatinine Clearance Estimated Creatinine Clearance: ~ 40 Goal Trough Goal Trough: 15-20 mcg/mL Pharmacy Plan for Drug Dosing Pharmacy Plan for Drug Dosing: Vancomycin trough = 12.0, increase dose to 750 mg q12h Pharmacy Service will continue to monitor and adjust dosing as required. Follow-Up Labs Follow-Up Labs: Trough: Vancomycin Date/Time Labs Ordered Labs to be done on [date and time ordered]: 01/28/25 @ 0100
--- NOTE | 2025-01-26 13:51 | CASEMGMT ---
Addendum entered by Saray Pastrana 01/26/25 15:02: [facility] has accepted. KARAN CM updated. Saray Pastrana DC Planning Asst. Original Note: Discharge Planning HH referral sent to [facility]. Saray Pastrana DC Planning Asst.
[2025-01-26] MEDS: Vancomycin HCl 750 MG in 0.9% Normal Saline (250mL Bag) 250 ML 250 MG IV (14:23)
--- NOTE | 2025-01-26 17:45 | PN.HOSP_ITS ---
Reason for Visit
--- NOTE | 2025-01-26 17:45 | PCM.PN.HOSP ---
Reason for Visit Chief Complaint: Altered mentation, leg wound recently started outpatient on abx, rhinorrhea/congestion. Subjective Subjective Feels generally weak and somewhat tired today but still significantly improved from presentation, denies any shortness of breath, cough, chest pain Objective Data Objective Data Vital Signs: Vital Signs Temp Pulse Resp BP Pulse Ox O2 Del Method O2 Flow Rate 97.4 F L 80 15 122/59 H 97 Room Air 2 01/26/25 14:01 01/26/25 14:01 01/26/25 14:01 01/26/25 14:01 01/26/25 14:01 01/26/25 14:01 01/25/25 15:20 Oxygen Flow Rate (L/min) 2 Oxygen Delivery Method Room Air Weight: 75.432 kg Body Mass Index (BMI) 30.4 Intake & Output: Intake and Output for Last 24 Hours 01/24/25 01/25/25 01/26/25 23:59 22:59 23:59 Intake Total 50 / 50 1640 / 1640 475 / 475 Output Total 1550 / 1950 800 / 800 Balance 50 / 50 90 / -310 -325 / -325 Lab / Micro Data 01/26/25 04:04 01/26/25 04:04 Labs: Laboratory Results - last 24 hr 01/25/25 22:41: POC Glucose 194 H 01/26/25 04:04: WBC 11.5 H, RBC 3.50 L, Hgb 8.9 L, Hct 29.1 L, MCV 83.1, MCH 25.4 L, MCHC 30.6 L, RDW Std Deviation 46.8 H, RDW Coeff of Maxwell 15.3 H, Plt Count 153, MPV 10.6, Immature Gran % (Auto) 0.500, Neut % (Auto) 64.6, Lymph % (Auto) 22.2, [place] % (Auto) 10.8 H, Eos % (Auto) 1.5, Baso % (Auto) 0.4, Absolute Neuts (auto) 7.4, Absolute Lymphs (auto) 2.55, Nucleated RBC % 0, Sodium 139, Potassium 3.7, Chloride 105, Carbon Dioxide 24.6, Anion Gap 10, BUN 29 H, Creatinine 1.21 H, Estim Creat Clear Calc 40.43 L, Est GFR (MDRD) Non-Af 48 L, BUN/Creatinine Ratio 24.2 H, Glucose 126 H, Calcium 8.7 01/26/25 06:23: POC Glucose 107 H 01/26/25 11:56: POC Glucose 132 H 01/26/25 11:58: Vancomycin Trough 12.0 01/26/25 16:20: POC Glucose 138 H Micro: Microbiology 01/25/25 01:05 EST Wound - Leg, Right Gram Stain - Final 01/24/25 18:20 Urine, Random Urine Culture - Preliminary Culture exhibits no growth. 01/25/25 07:35 Mucosa - Nasopharyngeal Respiratory Panel (PCR) - Final Radiography Diagnostic Testing: Radiology Impression Echocardiogram 01/24/25 23:48 Interpretation Summary Mild concentric left ventricular hypertrophy. The left ventricular ejection fraction is 35 %. Generalized hypokinesis. Severe inferior and inferior septal hypokinesis. Stage II diastolic dysfunction. Septal motion consistent with RV volume overload. Moderate mitral annular calcification. Mild (1+) mitral valve insufficiency. Mild-Moderate (1-2+) tricuspid valve insufficiency. There is mild biatrial dilatation. Right ventricular systolic pressure estimated to be 55 mmHg. Contrast injection was performed. Ordering Physician: Linda Melendez Referring Physician: Jaz Washburn Performed By: Rosa Britt, DENNIS Tibia/Fibula X-Ray 01/25/25 16:56 IMPRESSION: No acute osseous abnormality of the right tibia or fibula. Questionable wound in the medial calf, correlate with exam. Reading Location: [id number] Homelessness:: Unspecified (Unable to obtain other than what is documented in the [facility] neuro) Physical Exam Narrative General: Alert, oriented, no apparent distress HEENT: Atraumatic, normocephalic Eyes: Anicteric, normal conjunctiva, extraocular movements grossly intact Neck: Supple Respiratory: Somewhat diminished at the bases, normal respiratory effort Cardiovascular: Regular rate GI: Soft, nontender, nondistended Extremities: No significant pitting edema Musculoskeletal: Moving all extremities Neuro: No overt focal neurological deficits Skin: Lesion on chin unchanged without any erythema or active drainage Psych: Cooperative Assessment & Plan Assessment/Plan (1) Acute delirium: PLAN: Plan 69 y/o F with a history of anxiety, CAD with CABG August 2024, CKD, hypertension, diabetes, GERD presented to [facility] ED 01/25/2025 with confusion. She is not from the area and presented for scrapbooking convention. Reportedly EMS went out to check on her earlier today she did not feel well and thought it may be due to the wound on her leg that was infected but she subsequently drastically declined and was disoriented to time and place and lethargic. In the ED temp 98.5, heart rate 110, respiratory rate 26 and pulse ox 100% on 4 L nasal cannula, when taken off of oxygen respiratory rate went up to 33 and pulse ox 89% on room air. White count 22.5, hemoglobin 10.4, BUN 24 with a creatinine of 1.14, glucose 262 and lactic acid 3.0, troponin 23 and proBNP 10,887. ABG no acute abnormalities. Chest x-ray showed cardiomegaly with mild vascular congestion, bibasilar opacities possibly atelectasis and/or infiltrates, and bilateral pleural effusions greater on the left. Hospitalist contacted for admission for heart failure exacerbation. # Acute metabolic encephalopathy?resolved -Suspected be due to infection from right medial leg wound -Patient on broad-spectrum antibiotics with cultures pending -Elevate extremity -01/26: Resolved, patient awake and alert and answering questions # Right lower extremity wound - Where her graft was harvested, there was concern for infection and she was started on doxycycline on an outpatient basis - Changed IV antibiotics -01/26: Thus far culture no growth and does not appear to have organisms, may be due to patient already being on antibiotics, will continue today and follow-up cultures tomorrow, may need discharged on empiric therapy #Acute exacerbation of heart failure, unclear chronicity -Admit to telemetry -proBNP 10,000 -CXR with cardiomegaly and mild vascular congestion with bibasilar opacities and bilateral pleural effusions left greater than right -Continue IV lasix cautiously as there is concomitant concern for infection - Echo ordered -Daily weights, I's and O's -01/26: Patient 97% on room air with no shortness of breath, echocardiogram with EF 35% and stage II diastolic dysfunction with inferior hypokinesis, records from from her CABG show EF at that time was 35% but no formal echo available. Will DC Lasix and resume home spironolactone. Patient remained stable will likely DC tomorrow with home health #Type 2 diabetes mellitus -Glucose checks and sliding scale insulin -01/26: Long-acting insulin uptitrated to 40 twice daily, will be able to resume home dose on discharge #Hx of CAD -w/ previous CABG 08/2024 -Continue home medications -01/26: No chest pain, continue clopidogrel metoprolol #Hypertension - Continue home medications as blood pressure allows -01/26: Most recent blood pressure 122/59, continue current management Chronic medical problems and/or problems not being actively addressed during today's encounter: #GERD -Continue PPI #Depression/anxiety -Continue home medications #DVT ppx: Lovenox subcu Evelin Fernandez MD Charges/Coding Visit Charges Inpatient E&M: 52841 Subs Hosp L2
--- NOTE | 2025-01-26 20:36 | NURSING ---
RN on prior shift noted that hoang was removed at 1000 on 01/26/25.
[2025-01-27] MEDS: Vancomycin HCl 750 MG in 0.9% Normal Saline (250mL Bag) 250 ML 250 MG IV (01:21)
[2025-01-27 03:00] VITALS: PULSE 78
[2025-01-27 03:03] VITALS: BMI 30.6
[2025-01-27 03:44] VITALS: BP 153/76; PULSE 77; RESP 16; TEMP 36.4; O2SAT 93
[2025-01-27 06:30] VITALS: O2SAT 95
[2025-01-27] MEDS: Piperacil/Tazobactam 3.375 GM in 0.9% Normal Saline (50mL MB+) 50 ML IV ×2 (06:42→14:06)
[2025-01-27 06:54] LABS: Hematocrit 31.6 % (37-47); Hemoglobin 9.6 g/dL (12.0-15.0); Immature Granulocytes Count 0.020 X10^3/uL (0.0-0.0); Mean Corp Hgb Conc 30.4 g/dL (32-36); Mean Corpuscular Volume 83.2 fL (81-99); Mean Platelet Vol. 10.1 fl (6.2-12.0); NRBC Flagged by Analyzer 0 % (0-5); Platelet Count 177 K/mm3 (150-450); RBC Distribution Width CV 15.0 % (11.6-14.6); RBC Distribution Width SD 46.3 fl (35.1-43.9); Red Blood Count 3.80 M/mm3 (4.2-5.4); White Blood Count 7.7 K/mm3 (4.4-11.0)
[2025-01-27 07:32] LABS: Anion Gap 10 (5-15); BUN 26 mg/dL (4-19); BUN/Creat Ratio 25.4 RATIO (10-20); Calcium,Total 9.2 mg/dL (7.6-11.0); Carbon Dioxide 26.9 mmol/L (21.0-32.0); Chloride 103 mmol/L (98-108); Estimated Creatinine Clearance 48.76 ml/min (50-250); Glucose 79 mg/dL (70-99); Potassium 3.7 mmol/L (3.3-5.1)
[2025-01-27] MEDS: Insulin Human 75/25 Kwickpen 40 UNIT SC (08:59)
[2025-01-27 09:03] VITALS: PULSE 77
[2025-01-27] MEDS: Metoprolol(XL)Succ 50 MG Tablet PO (09:03)
[2025-01-27 09:45] VITALS: BP 150/74; PULSE 77; RESP 16; TEMP 36.6; O2SAT 95
--- NOTE | 2025-01-27 14:18 | DCINST_ITS ---
Discharge Instructions
--- NOTE | 2025-01-27 14:18 | PCM.DC ---
Discharge Instructions DC O2, CPAP, BIPAP needs Home O2 Discharge instructions: No Dressing / Incision Discharge Activity: - (Increase activity as tolerated) Follow Up Care Test Results: Test results from this visit will be discussed in further detail at your follow-up appointment, if applicable. Discharge Plan Admission Admit Date/Time: 01/24/25 21:18 Primary Reason for Your Visit: Leg infection Attending Provider: Evelni Fernandez Primary Care Provider: Jaz Washburn Consulting Providers: Linda Melendez Instructions Patient Instructions: ED Fall Prevention Additional Instructions / Restrictions: DISCHARGE INSTRUCTIONS PLEASE READ *Please take this with you to your next doctors appointment* - Please continue all of your home medications as previously prescribed by your outpatient physicians -Please call your rock climbing instructor to reschedule the appointment that you were unable to attend due to being admitted to the hospital -You will no longer take doxycycline, instead you will be discharged on levofloxacin 750 mg for another 7 days, this was sent to [facility] pharmacy so that you can acquire this before you leave -Please call your primary care provider's office upon discharge to schedule a hospital follow up within 1 week. -For any concerning signs or symptoms please call 911 or proceed to the nearest emergency department Discharge Orders/Prescriptions Prescriptions: New levofloxacin 750 mg tablet 750 mg PO DAILY 7 Days Qty: 7 0RF Continued albuterol sulfate 2.5 mg /3 mL (0.083 %) solution for nebulization 2.5 mg continuous nebulization Q6H PRN PRN (Reason: dyspnea) albuterol sulfate 90 mcg/actuation HFA aerosol inhaler 1 - 2 puff inhalation Q4H PRN PRN (Reason: dyspnea) losartan 50 mg tablet 50 mg PO DAILY buspirone 5 mg tablet 5 mg PO BID clopidogrel 75 mg tablet 75 mg PO DAILY omeprazole 40 mg capsule,delayed release(DR/EC) 40 mg PO DAILY spironolactone 25 mg tablet 25 mg PO DAILY potassium chloride 20 mEq tablet,ER particles/crystals 20 meq PO DAILY metoprolol succinate 25 mg tablet extended release 24 hr 50 mg PO DAILY insulin asp prt-insulin aspart [Novolog Mix 70-30FlexPen U-100] 100 unit/mL (70-30) insulin pen 45 unit subcut BID ezetimibe 10 mg tablet 10 mg PO QHS bumetanide 1 mg tablet 1 mg PO DAILY PRN (Reason: with swelling and weight gain) Discontinued doxycycline monohydrate 100 mg capsule 100 mg PO BID Patient Comments: pt states she took two doses of this medication before admission to [facility] Referrals / Follow Up: Jaz Washburn MD [Primary Care Provider, Family Practice] [facility] Doctor,Out of [Non-Staff, Medical] Disposition Disposition (needs filled in before D/C Order can be placed): Home Health Service
--- NOTE | 2025-01-27 14:28 | PCM.DC.SUM ---
Providers Date of Admission: 01/24/25 Date of Discharge: 01/27/25 Primary Care Physician: Dr. Jaz Washburn MD Reason For Visit: ENCEPHALOPATHY, ?HF EXACERBATION, ?RLE WOUND Diagnosis Discharge Diagnosis (1) Acute delirium: Status: Acute Code(s): R41.0 - Disorientation, unspecified Plan # Acute metabolic encephalopathy secondary to right lower extremity infection due to Pseudomonas # Right lower extremity wound infection secondary Pseudomonas #Acute exacerbation of chronic combined heart failure?resolved #Type 2 diabetes mellitus #Hx of CAD #Hypertension #GERD #Depression/anxiety Medications at Discharge Home Medications albuterol sulfate 2.5 mg/3 mL (0.083 %) solution for nebulization 2.5 mg continuous nebulization Q6H PRN PRN dyspnea 01/24/25 albuterol sulfate 90 mcg/actuation aerosol inhaler 1 - 2 puff inhalation Q4H PRN PRN dyspnea 01/24/25 buspirone 5 mg tablet 5 mg PO BID 01/24/25 clopidogrel 75 mg tablet 75 mg PO DAILY 01/24/25 insulin aspar prot-insulin aspart 100 unit/mL (70-30) subcutaneous pen (Novolog Mix 70-30FlexPen U-100) 45 unit subcut BID 01/24/25 losartan 50 mg tablet 50 mg PO DAILY 01/24/25 metoprolol succinate 25 mg tablet,extended release 24 hr 50 mg PO DAILY 01/24/25 omeprazole 40 mg capsule,delayed release 40 mg PO DAILY 01/24/25 potassium chloride 20 mEq tablet,extended release(part/cryst) 20 meq PO DAILY 01/24/25 spironolactone 25 mg tablet 25 mg PO DAILY 01/24/25 bumetanide 1 mg tablet 1 mg PO DAILY PRN with swelling and weight gain 01/26/25 ezetimibe 10 mg tablet 10 mg PO QHS cholesterol 01/26/25 levofloxacin 750 mg tablet 750 mg PO DAILY 7 days #7 tabs 01/27/25 Hospital Course Summary of Care Provided Minutes Spent on Discharge: 36 Hospital Course: 69 y/o F with a history of anxiety, CAD with CABG August 2024, CKD, hypertension, diabetes, GERD presented to [facility] ED 01/25/2025 with confusion. She is not from the area and presented for scrapbooking convention. Reportedly EMS went out to check on her earlier today she did not feel well and thought it may be due to the wound on her leg that was infected but she subsequently drastically declined and was disoriented to time and place and lethargic. In the ED temp 98.5, heart rate 110, respiratory rate 26 and pulse ox 100% on 4 L nasal cannula, when taken off of oxygen respiratory rate went up to 33 and pulse ox 89% on room air. White count 22.5, hemoglobin 10.4, BUN 24 with a creatinine of 1.14, glucose 262 and lactic acid 3.0, troponin 23 and proBNP 10,887. ABG no acute abnormalities. Chest x-ray showed cardiomegaly with mild vascular congestion, bibasilar opacities possibly atelectasis and/or infiltrates, and bilateral pleural effusions greater on the left. Hospitalist contacted for admission for heart failure exacerbation. Patient has been stable on her home medications for her heart failure until she began to develop infection in her right lower extremity which seemed to cause overall clinical decline, patient improved significantly with IV diuresis and echocardiogram showed EF of 35%, records from indicate her EF at the time of CABG was 30% and patient became euvolemic. Wound on right lower extremity grew Pseudomonas which was appropriately covered with Zosyn. Culture show sensitivity to Levaquin. Discussed with patient and her daughter, patient is to resume her home medications and will be discharged with Levaquin with instructions to follow-up with her outpatient providers, they are comfortable with this plan. On day of discharge patient reports she had softer stool on the scheduled senna/docusate without any nausea or abdominal pain. No chest pain, shortness of breath, or productive cough. No other new acute complaints. Discharge instructions as follows: - Please continue all of your home medications as previously prescribed by your outpatient physicians -Please call your software quality specialist to reschedule the appointment that you were unable to attend due to being admitted to the hospital -You will no longer take doxycycline, instead you will be discharged on levofloxacin 750 mg for another 7 days, this was sent to [facility] pharmacy so that you can acquire this before you leave -Please call your primary care provider's office upon discharge to schedule a hospital follow up within 1 week. -For any concerning signs or symptoms please call 911 or proceed to the nearest emergency department Physical Exam Narrative General: Alert, oriented, no apparent distress HEENT: Atraumatic, normocephalic Eyes: Anicteric, normal conjunctiva, extraocular movements grossly intact Neck: Supple Respiratory: No wheezes or rhonchi, normal respiratory effort Cardiovascular: Regular rate GI: Soft, nontender, nondistended Extremities: No significant pitting edema Musculoskeletal: Moving all extremities Neuro: No overt focal neurological deficits Skin: Lesion on chin unchanged without any erythema or active drainage Psych: Cooperative Medical Records Data Homelessness:: Unspecified (Unable to obtain other than what is documented in the [facility] neuro) Weight / BMI Weight Weight: 76 kg Body Mass Index (BMI) 30.6 ABG / Lab / Microbiology Data 01/27/25 06:32 01/27/25 06:32 Laboratory: Laboratory Results - last 24 hr 01/27/25 12:30: POC Glucose 131 H Microbiology: Microbiology 01/24/25 18:25 Blood Culture (Wb) - Anticubital Right Blood Culture - Preliminary No growth in 48 hours. 01/24/25 18:25 Blood Culture (Wb) - Anticubital Left Blood Culture - Preliminary No growth in 48 hours. 01/24/25 18:20 Urine, Random Urine Culture - Final Culture exhibits no growth. 01/25/25 01:05 EST Wound - Leg, Right Gram Stain - Final 01/25/25 01:05 EST Wound - Leg, Right Wound Culture - Preliminary Pseudomonas aeruginosa 01/25/25 07:35 Mucosa - Nasopharyngeal Respiratory Panel (PCR) - Final Radiography Diagnostic Testing: Radiology Impression Echocardiogram 01/24/25 23:48 Interpretation Summary Mild concentric left ventricular hypertrophy. The left ventricular ejection fraction is 35 %. Generalized hypokinesis. Severe inferior and inferior septal hypokinesis. Stage II diastolic dysfunction. Septal motion consistent with RV volume overload. Moderate mitral annular calcification. Mild (1+) mitral valve insufficiency. Mild-Moderate (1-2+) tricuspid valve insufficiency. There is mild biatrial dilatation. Right ventricular systolic pressure estimated to be 55 mmHg. Contrast injection was performed. Ordering Physician: Linda Melendez Referring Physician: Jaz Washburn Performed By: Rosa Britt RDCS D/C Instructions DC O2, CPAP, BIPAP Needs Home O2 Discharge instructions: No Meaningful Use Info Meaningful Use Meaningful Use Diagnoses (Choose all that apply): CHF CHF ARPIT/ARB ordered at discharge?: Yes Documented LVEF (%): 35 Discharge Plan Admission Admit Date/Time: 01/24/25 21:18 Primary Reason for Your Visit: Leg infection Attending Provider: Evelin Fernandez Primary Care Provider: Jaz Washburn Consulting Providers: Linda Melendez Instructions Patient Instructions: ED Fall Prevention Additional Instructions / Restrictions: DISCHARGE INSTRUCTIONS PLEASE READ *Please take this with you to your next doctors appointment* - Please continue all of your home medications as previously prescribed by your outpatient physicians -Please call your software quality specialist to reschedule the appointment that you were unable to attend due to being admitted to the hospital -You will no longer take doxycycline, instead you will be discharged on levofloxacin 750 mg for another 7 days, this was sent to [facility] pharmacy so that you can acquire this before you leave -Please call your primary care provider's office upon discharge to schedule a hospital follow up within 1 week. -For any concerning signs or symptoms please call 911 or proceed to the nearest emergency department Discharge Orders/Prescriptions Prescriptions: New levofloxacin 750 mg tablet 750 mg PO DAILY 7 Days Qty: 7 0RF Continued albuterol sulfate 2.5 mg /3 mL (0.083 %) solution for nebulization 2.5 mg continuous nebulization Q6H PRN PRN (Reason: dyspnea) albuterol sulfate 90 mcg/actuation HFA aerosol inhaler 1 - 2 puff inhalation Q4H PRN PRN (Reason: dyspnea) losartan 50 mg tablet 50 mg PO DAILY buspirone 5 mg tablet 5 mg PO BID clopidogrel 75 mg tablet 75 mg PO DAILY omeprazole 40 mg capsule,delayed release(DR/EC) 40 mg PO DAILY spironolactone 25 mg tablet 25 mg PO DAILY potassium chloride 20 mEq tablet,ER particles/crystals 20 meq PO DAILY metoprolol succinate 25 mg tablet extended release 24 hr 50 mg PO DAILY insulin asp prt-insulin aspart [Novolog Mix 70-30FlexPen U-100] 100 unit/mL (70-30) insulin pen 45 unit subcut BID ezetimibe 10 mg tablet 10 mg PO QHS bumetanide 1 mg tablet 1 mg PO DAILY PRN (Reason: with swelling and weight gain) Discontinued doxycycline monohydrate 100 mg capsule 100 mg PO BID Patient Comments: pt states she took two doses of this medication before admission to [facility] Referrals / Follow Up: Jaz Washburn MD [Primary Care Provider, Family Practice] [facility] Doctor,Out of [Non-Staff, Medical] Disposition Disposition (needs filled in before D/C Order can be placed): Home Health Service Charges/Coding Visit Charges Inpatient E&M: 02103 Disch Hosp >30min
--- NOTE | 2025-01-27 15:06 | CASEMGMT ---
Patient has order for discharge. RN CM in to update patient regarding discharge, daughter at bedside. RN CM updated patient that she was accepted by [facility], patient voiced appreciation. Patient denied further needs or help at discharge. Patient and daughter had no further questions or concerns.
--- NOTE | 2025-01-27 15:13 | CASEMGMT ---
Discharge Planning Discharge instructions sent to [facility]. Saray Pastrana DC Planning Asst.
[2025-01-27 16:00] VITALS: BP 145/74; PULSE 72; RESP 16; TEMP 36.6; O2SAT 95
== END 2025-01-27 16:24 | disposition home health service (06) | DRG 291 ==
LOC: ED 20:10 → PCU 21:46
PROVIDERS: Admitting Provider Family Medicine; Emergency Provider Emergency Medicine; PCP Family Medicine; Visit Provider Internal Medicine
DX: I13.0 Hypertensive heart and chronic kidney disease with heart failure and stage 1 through stage 4 chronic kidney disease, or unspecified chronic kidney disease (principal); G93.41 Metabolic encephalopathy; I50.23 Acute on chronic systolic (congestive) heart failure; E87.20 Acidosis, unspecified; Z59.00 Homelessness unspecified; B96.5 Pseudomonas (aeruginosa) (mallei) (pseudomallei) as the cause of diseases classified elsewhere; Z95.1 Presence of aortocoronary bypass graft; E11.22 Type 2 diabetes mellitus with diabetic chronic kidney disease; N18.30 Chronic kidney disease, stage 3 unspecified; D64.9 Anemia, unspecified; F32.A Depression, unspecified; E78.5 Hyperlipidemia, unspecified; I25.10 Atherosclerotic heart disease of native coronary artery without angina pectoris; K21.9 Gastro-esophageal reflux disease without esophagitis; F41.9 Anxiety disorder, unspecified; Z79.4 Long term (current) use of insulin; I25.2 Old myocardial infarction; Z79.02 Long term (current) use of antithrombotics/antiplatelets; Z79.899 Other long term (current) drug therapy; Z79.51 Long term (current) use of inhaled steroids; Z87.891 Personal history of nicotine dependence
CPT/HCPCS: 36415; 36600; 71045; 73590; 80048; 80053; 80061; 80202; 81001; 82803; 82962; 83605; 83735; 83880; 84145; 84443; 84484; 85025; 85610; 85730; 87040; 87070; 87077; 87086; 87184; 87186; 87205; 87633; 93005; 93306; 94668; 97162; 97165; 97530; 97535; 99285; Q9957; A4216; C8929; J0696; J1938